=== PATIENT | female | born 1970 | race Caucasian/White ===

== ENCOUNTER 2018-03-23 09:14 | Emergency (ER) | payer MEDICAID ==
[~2018-03-23] VITALS: Ht 154.9 cm; Wt 72.6 kg
[2018-03-23 09:16] VITALS: Ht 154.9 cm; Wt 72.6 kg
[2018-03-23 11:11] LABS: BASOPHIL % 0.1 % (0-2); PLATELET COUNT 391 x10^3mcL (130-400)
[2018-03-23 11:15] LABS: RED CELL DISTRIBUTION WIDTH 19.1 % (11.5-14.5)
[2018-03-23 11:16] LABS: rbc morphology (normal/abnorm) ABNORMAL (NORMAL)
[2018-03-23 11:25] LABS: UA SPECIFIC GRAVITY >=1.030 (1.005-1.035); microscopic required? YES; urine erythrocyte 3+ (NEGATIVE)
[2018-03-23 13:41] LABS: IRON 9 ug/dL (50-170); TOTAL IRON BINDING CAPACITY 525 ug/dL (250-450)
[2018-03-23 14:50] VITALS: BP 126/60
== END 2018-03-23 14:50 | disposition home or self-care (01) ==
LOC: ED 09:14
PROVIDERS: Emergency Medicine Emergency Medical Services
DX: N93.9 Abnormal uterine and vaginal bleeding, unspecified (principal); D50.9 Iron deficiency anemia, unspecified; R93.5 Abnormal findings on diagnostic imaging of other abdominal regions, including retroperitoneum
CPT/HCPCS: 36415